=== PATIENT | female | born 1995 | race Caucasian/White ===

== ENCOUNTER 2016-10-07 10:04 | Emergency (ER) | payer OTHER ==
[~2016-10-07] VITALS: Ht 160 cm; Wt 90.4 kg
[~2016-10-07 10:04] MED LIST: PREN-27 PO
[2016-10-07] MEDS ORDERED: LIDOCAINE HCL BUFFERED 1% 20 ML VIAL INJ ONE (12:45)
[2016-10-07] MEDS ORDERED: POVIDONE-IODINE 15 ML SOLUTION UD TP ONE (12:45)
[2016-10-07 14:25] VITALS: BP 109/76
== END 2016-10-07 14:27 | disposition home or self-care (01) ==
LOC: EMS 10:05
DX: L02.31 Cutaneous abscess of buttock (principal)
CPT/HCPCS: 10060; 99283; J3490; 46040

== ENCOUNTER 2023-03-25 01:53 | Emergency (ER) | payer OTHER ==
[~2023-03-25] VITALS: Ht 160 cm; Wt 93.0 kg
[2023-03-25 01:59] VITALS: TEMP 99
[2023-03-25] MEDS ORDERED: LIDOCAINE 1% 10 ML VIAL SQ ONE (02:30)
[2023-03-25] MEDS ORDERED: CefTRIAXone SODIUM 1 GM/VIAL IM ONE (03:00)
[2023-03-25] MEDS ORDERED: LIDOCAINE/PF 1% 2 ML VIAL IM ONE (03:00)
[2023-03-25 03:13] VITALS: BP 120/75; PULSE 92; RESP 17
== END 2023-03-25 03:14 | disposition home or self-care (01) ==
LOC: EMS 01:54
DX: L02.31 Cutaneous abscess of buttock (principal); L03.317 Cellulitis of buttock; Z90.49 Acquired absence of other specified parts of digestive tract; Z90.89 Acquired absence of other organs
CPT/HCPCS: 99283; 10060; 87205; 96372; 87070; J0696; J3490 ×2